=== PATIENT | male | born 1965 | race African-American/Black ===

== ENCOUNTER 2018-08-10 08:19 | Emergency (ER) | payer SELFPAY ==
[2018-08-10] MEDS ORDERED: cefTRIAXone\\ROCEPHIN 250 MG VIAL ONE (09:15)
[2018-08-10] MEDS ORDERED: Azithromycin 250 MG TAB ONE ×2 (09:15→09:17)
[2018-08-10] MEDS ORDERED: Lidocaine 1% PF 5 ML VIAL ONE (09:21)
[2018-08-10 09:54] LABS: Bilirubin Negative (Negative); Blood, Urine Large (Negative); Clarity CLOUDY (Clear); Glucose, Urine (Dipstick) Negative (Negative); Leukocyte Moderate (Negative); Nitrite Negative (Negative); Protein, Urine (Dipstick) Trace mg/dL (Neg-Trace); Specific Gravity, Urine 1.016 (1.002-1.036)
[2018-08-10 09:57] LABS: Bacteria/HPF 3+ HPF (None Seen); Hyaline Casts/LPF 4-6 HYALINE CAST LPF (0-3 Hyaline); RBC/HPF GREATER THAN 50-TNTC HPF (0-3); Squamous Epithelial None Seen HPF (0-3)
[2018-08-11 01:45] LABS: Chlamydia by PCR Not Detected (NotDetected); GC by PCR Not Detected (NotDetected)
== END 2018-08-10 10:17 | disposition home or self-care (01) ==
LOC: ERS 08:19
DX: N34.2 Other urethritis (principal); Z87.891 Personal history of nicotine dependence
CPT/HCPCS: 81003; 81015; 87077; 87086; 87186; 87491; 87591; 96372; J0696; J2001

== ENCOUNTER 2020-02-29 07:45 | Emergency (ER) | payer SELFPAY ==
[2020-02-29] MEDS ORDERED: cefTRIAXone\\ROCEPHIN 250 MG VIAL ONE (08:15)
[2020-02-29] MEDS ORDERED: Azithromycin 250 MG TAB ONE (08:15)
[2020-02-29] MEDS ORDERED: Lidocaine 1% PF 5 ML VIAL ONE (08:16)
[2020-02-29 08:36] LABS: Bilirubin Negative (Negative); Blood, Urine Negative (Negative); Clarity Clear (Clear); Glucose, Urine (Dipstick) Normal (Negative); Ketone, Urine Negative (Negative); Leukocyte 25 Leu/uL (Negative); Nitrite Negative (Negative); Protein, Urine (Dipstick) Negative (Neg-Trace); RBC/HPF 0-3 HPF (0-3); Specific Gravity, Urine 1.018 (1.002-1.036); Squamous Epithelial 0-3 HPF (0-3); Urobilinogen Normal mg/dL (Less than 2)
[2020-02-29 08:40] LABS: Bacteria/HPF 1+ HPF (None Seen)
[2020-03-02 14:13] LABS: Chlamydia trachomatis by NAA Negative (Negative)
== END 2020-02-29 09:19 | disposition home or self-care (01) ==
LOC: ERS 07:45
DX: N39.0 Urinary tract infection, site not specified (principal); F17.210 Nicotine dependence, cigarettes, uncomplicated
CPT/HCPCS: 81003; 81015; 87491; 87591; 96372; 99283; J0696

== ENCOUNTER 2020-09-25 09:55 | Emergency (ER) | payer SELFPAY | END 2020-09-25 10:45 | disposition home or self-care (01) | LOC: ERS 09:55 | DX: M77.8 Other enthesopathies, not elsewhere classified (principal); F17.210 Nicotine dependence, cigarettes, uncomplicated; Y04.0XXA Assault by unarmed brawl or fight, initial encounter | CPT/HCPCS: 29125 ==